=== PATIENT | female | born 1970 | race African-American/Black ===

== ENCOUNTER 2016-12-30 15:47 | Emergency (ER) | payer SELFPAY ==
[~2016-12-30] VITALS: Ht 165.1 cm; Wt 97.0 kg
[2016-12-30] MEDS ORDERED: KETOROLAC 60MG/2ML VIAL IM ONE (16:00)
[2016-12-30 16:45] VITALS: BP 142/96
== END 2016-12-30 18:33 | disposition home or self-care (01) ==
LOC: ER 15:50
DX: M54.16 Radiculopathy, lumbar region (principal); M54.30 Sciatica, unspecified side; I10 Essential (primary) hypertension; I48.91 Unspecified atrial fibrillation
CPT/HCPCS: 96372; 99283; J1885